=== PATIENT | female | born 1995 | race African-American/Black ===

== ENCOUNTER 2022-07-01 08:55 | Emergency (ER) | payer SELFPAY ==
[~2022-07-01] VITALS: Ht 149.9 cm; Wt 59.0 kg
[2022-07-01 08:55] VITALS: BP 105/71
--- NOTE | 2022-07-01 08:55 | NUR ---
BIB MOTHER C/O SORE THROAT, SOB, AND SWEATS X6 DAYS WENT TO URGENT CARE GIVEN ANTIBIOTICS, NO RELIEF, TOOK COVID TEST AT HOME AND IT WAS NEG.
[2022-07-01] MEDS ORDERED: AMOX-427 PO (09:14)
--- NOTE | 2022-07-01 09:24 | NUR ---
LAB AT BEDSIDE
[2022-07-01] MEDS ORDERED: DEXAMETHASONE SOD PHOSPHATE 10 MG/ML VIAL IM ONE (09:30)
[2022-07-01] MEDS ORDERED: DEXAMETHASONE SOD PHOSPHATE 10 MG/ML VIAL ONE (09:31)
--- NOTE | 2022-07-01 09:32 | NUR ---
THROAT CULTURE COLLECTED AND SENT
--- NOTE | 2022-07-01 09:38 | NUR ---
Patient discharged to home in stable condition. Written and verbal after care instructions given. Patient verbalizes understanding of instruction.
[2022-07-01 10:42] LABS: MONOTEST POSITIVE (NEGATIVE)
== END 2022-07-01 09:38 | disposition home or self-care (01) ==
LOC: ER 08:59
DX: J02.9 Acute pharyngitis, unspecified (principal)
CPT/HCPCS: 99283; 96372; 86308; 36415; J1100